=== PATIENT | female | born 1995 | race Caucasian/White ===

== ENCOUNTER 2017-06-15 22:22 | Emergency (ER) | payer MEDICAID ==
[~2017-06-15] VITALS: Ht 170.2 cm; Wt 66.5 kg
[~2017-06-15 22:22] MED LIST: AMO500 PO; BENZ1LOZ52 MM; CIPR-193 PO; IBUP-1542 PO; ONDA4TAB35 PO; PYRIDIUM 200 MG PO
[2017-06-15 22:34] VITALS: Ht 170.2 cm; Wt 66.5 kg
--- NOTE | 2017-06-15 22:55 | ERD ---
ER Documentation Chief Complaint Date/Time DATE: 06/15/17 TIME: 22:51 Chief Complaint painful urinationx1 day. Mild Hematuria started today HPI 21-year-old female presents here in emergency department for complaints of dysuria and hematuria that started today. Patient is complaining of pain upon urination, burning pain 4/10 scale, is accompanied with it hematuria. Patient denies any vaginal itching or vaginal discharge. Patient took Pyridium prior to coming here in emergency department with mild relief. ROS All systems reviewed and are negative except as per history of present illness. Medications Home Meds Active Scripts Ibuprofen* (Motrin*) 600 Mg Tab, 600 MG PO Q6, #14 TAB Prov:STEVEN FIGUEROA MD 07/19/16 Amoxicillin* (Amoxicillin*) 500 Mg Cap, 500 MG PO TID for 10 Days, CAP Prov:STEVEN FIGUEROA MD 07/19/16 Ibuprofen* (Motrin*) 600 Mg Tab, 600 MG PO Q6, #20 TAB Prov:YONY MENDOZA PA-C 05/09/16 Benzocaine/Menthol* (Cepacol* Sore Throat Lozenges) 1 Each Lozenge, 1 EACH MM q2h Y for SORE THROAT, #20 LOZENGE Prov:YONY MENDOZA PA-C 05/09/16 Amoxicillin* (Amoxicillin*) 500 Mg Cap, 500 MG PO TID for 10 Days, CAP Prov:YONY MENDOZA PA-C 05/09/16 Ibuprofen* (Motrin*) 600 Mg Tab, 600 MG PO Q6, #14 TAB Prov:STEVEN FIGUEROA MD 03/19/16 Amoxicillin* (Amoxicillin*) 500 Mg Cap, 500 MG PO TID for 10 Days, CAP Prov:STEVEN FIGUEROA MD 03/19/16 Ondansetron Hcl* (Zofran* ODT) 4 mg -ODT Tab.disper, 4 MG PO Q8 Y for NAUSEA AND /OR VOMITING, #30 TAB Prov:RASHAD PARISH NP 04/18/15 Reported Medications [Pyridium 200 Mg] No Conflict Check, 200 MG PO TID 03/22/13 Ciprofloxacin Hcl* (Ciprofloxacin Hcl*) 250 Mg Tablet, 250 MG PO BID 03/22/13 Allergies Allergies: Coded Allergies: No Known Allergies (Verified Allergy, Mild, 04/18/15) PMhx/Soc Medical and Surgical Hx: pt denies Medical Hx, pt denies Surgical Hx History of Surgery: No Anesthesia Reaction: No Hx Neurological Disorder: No Hx Respiratory Disorders: No Hx Cardiac Disorders: No Hx Psychiatric Problems: No Hx Miscellaneous Medical Probl: No Hx Alcohol Use: Yes Hx Substance Use: No Hx Tobacco Use: No Smoking Status: Never smoker FmHx Family History: No coronary disease, No diabetes, No other Physical Exam Vitals Vital Signs Date Time Temp Pulse Resp B/P Pulse Ox O2 Delivery O2 Flow Rate FiO2 06/15/17 22:34 98.0 76 18 125/76 98 Physical Exam GENERAL: The patient is well developed and appropriate for usual state of health, in no apparent distress. CHEST: Clear to auscultation bilaterally. There are no rales, wheezes or rhonchi. HEART: Regular rate and rhythm. No murmurs, clicks, rubs or gallops. No S3 or S4. ABDOMEN: Soft, nontender and nondistended. Good bowel sounds. No rebound or guarding. No gross peritonitis. No gross organomegaly or masses. No Chamberlain sign or McBurney point tenderness. BACK: No midline or flank tenderness. EXTREMITIES: Equal pulses bilaterally. There is no peripheral clubbing, cyanosis or edema. No focal swelling or erythema. Full range of motion. Grossly neurovascularly intact. NEURO: Alert and oriented. Cranial nerves 2-12 intact. Motor strength in all 4 extremities with 5/5 strength. Sensation grossly intact. Normal speech and gait. SKIN: There is no apparent rash or petechia. The skin is warm and dry. HEMATOLOGIC AND LYMPHATIC: There is no evidence of excessive bruising or lymphedema. No gross cervical, axillary, or inguinal lymphadenopathy. Results 24 hrs Laboratory Tests Test 06/15/17 23:09 Bedside Urine pH (LAB) 5.5 Bedside Urine Protein (LAB) 2+ Bedside Urine Glucose (UA) 0.1% Bedside Urine Ketones (LAB) Negative Bedside Urine Blood 3+ Bedside Urine Nitrite (LAB) Positive Bedside Urine Leukocyte Esterase (L 1+ Procedures/MDM Medical Decision Making: Patients symptoms are consistent with urinary tract infection. There is low suspicion for pyelonephritis. There is low suspicion for abdominal emergencies at this time. Patients abdominal exam is normal. There is low suspicion for sepsis. Patient appears well and is hemodynamically stable. Disposition: Home. Stable Prescription Ciprofloxin, Pyridium Instructions: Patient is advised to take medications as prescribed. Patient is advised to rest, increase fluid intake and do good perineal hygiene. Patient is advised that if symptoms are worse, severe abdominal pain, uncontrolled vomiting , high fever, severe flank pain, worst signs and symptoms, to return to the emergency department immediately. Otherwise, patient can follow up with primary care doctor in 5-7 days. Disclaimer: Inadvertent spelling and grammatical errors are likely due to EHR/ dictation software use and do not reflect on the overall quality of patient care. Also, please note that the electronic time recorded on this note does not necessarily reflect the actual time of the patient encounter. Departure Diagnosis: Primary Impression: UTI (urinary tract infection) Urinary tract infection type: acute cystitis Hematuria presence: with hematuria Qualified Code: N30.01 - Acute cystitis with hematuria Condition: Stable Patient Instructions: Understanding Urinary Tract Infections (UTIs) Additional Instructions: Patient is advised to take medications as prescribed. Patient is advised to rest , increase fluid intake and do good perineal hygiene. Patient is advised that if symptoms are worse, severe abdominal pain, uncontrolled vomiting, high fever , severe flank pain, worst signs and symptoms, to return to the emergency department immediately. Otherwise, patient can follow up with primary care doctor in 5-7 days. RASHAD PARISH NP Jun 15, 2017 22:55
[2017-06-15 23:03] LABS: URINE BLOOD (Dip) POC 3+ (NEGATIVE)
[2017-06-15] MEDS ORDERED: PHEN-538 PO (23:16)
[2017-06-15] MEDS ORDERED: CIPR500T4 PO (23:16)
== END 2017-06-15 23:49 | disposition home or self-care (01) ==
LOC: FTE 22:22
DX: N30.01 Acute cystitis with hematuria (principal)
CPT/HCPCS: 81003; Z7502; 99283

== ENCOUNTER 2018-05-02 13:02 | Emergency (ER) | END 2018-05-02 15:51 | disposition home or self-care (01) ==

== ENCOUNTER 2018-12-07 01:08 | Emergency (ER) | payer SELFPAY ==
[~2018-12-07] VITALS: Ht 167.6 cm; Wt 67.5 kg
[~2018-12-07 01:08] MED LIST changes: +ACET500C5 PO; -AMO500 PO; +AMOX500C2 PO; +CIPR500T4 PO; +ONDA8TAB14 PO; +PHEN-538 PO
[2018-12-07 01:11] VITALS: BP 126/86; PULSE 70; RESP 18; Ht 167.6 cm; Wt 67.5 kg
[2018-12-07] MEDS ORDERED: NITR-58 PO (14:30)
== END 2018-12-07 03:53 | disposition left against medical advice (07) ==
LOC: FTE 01:08
DX: Z53.21 Procedure and treatment not carried out due to patient leaving prior to being seen by health care provider (principal)